=== PATIENT | female | born 1980 | race Caucasian/White ===

== ENCOUNTER → 2017-02-07 | Outpatient (CLI) | payer SELFPAY | END | disposition home or self-care (01) | LOC: LABWHC1 13:27 | PROVIDERS: ATTEND Obstetrics & Gynecology | DX: Z34.80 Encounter for supervision of other normal pregnancy, unspecified trimester (principal); Z3A.00 Weeks of gestation of pregnancy not specified | CPT/HCPCS: 36415; 84702 ==

== ENCOUNTER → 2017-02-12 | Outpatient (CLI) | payer SELFPAY ==
--- NOTE | 2017-02-12 13:51 | US ---
EXAMINATION TYPE: US OB <=14 wks transvag DATE OF EXAM: 02/12/2017 COMPARISON: US 01/28/2017 CLINICAL HISTORY: 36-year-old female Z36 F/U TO PREV ABN 01/28 r68.89 ABNORMAL CLINICAL. Bleeding on and off. Abnormal HCG EXAM PERFORMED: Transvaginal (TV) and Transabdominal (TA) FINDINGS: EXAM MEASUREMENTS: GESTATIONAL AGE / DATING Physician Established: Not yet established Dates by LMP: (9 weeks/4 days) EDC: 09/13/2017 Dates by First Scan: (7 weeks/1 days)- by gestational sac only, No pole identified EDC: 09/30/2017 Dates by Current Scan for: (5 weeks/1 days)- by gestational sac only, No pole identified (2 w eeks less growth than expected as compared to 01/28/2017) EDC: 10/14/2017 MATERNAL ANATOMY Uterus: 8.0 x 5.3 x 5.7 cm Right Ovary: 2.1 x 1.5 x 2.2 cm Left Ovary: 2.1 x 1.5 x 2.3 cm Post CDS / Adnexa: wnl Presence of free fluid: No Presence of corpus luteal cyst: Cystic area visualized left ovary measured 1.2 x 0.8 x 1.2 cm Presence of subchorionic bleed: Yes, measuring 0.9 x 0.9 x 0.6 cm GESTATION / SURVEY MSD: 0.59 cm (5 weeks/1 days) Yolk Sac (normal less than 6mm): No yolk sac visualized IUP: No yolk sac or pole seen Date of LMP: 12/07/2016 Beta HcG (if available): Not available at time of exam No pole or yolk sac identified on today's exam. Probable subchorionic bleed visualized measurin g 0.9 x 0.9 x 0.6 cm. Cystic area visualized left ovary measuring 1.2 x 0.8 x 1.2 cm. IMPRESSION: 1. Cystic collection along the fundal endometrium. If this represents a gestational sac, at this size , a yolk sac and pole should also be present. Also, there has been 2 weeks less growth than exp ected of this structure when compared with 01/28/2017. A small perigestational bleed is also seen. 2. Correlate with serial beta-hCG. Ultrasound follow-up as indicated. Findings suspicious for failed or blighted ovum. Pseudogestational sac of a nonvisualized ectopic is also a consideration.
== END | disposition home or self-care (01) ==
LOC: RADUSWWP 12:26
PROVIDERS: ATTEND Obstetrics & Gynecology
DX: Z36.89 Encounter for other specified antenatal screening (principal); O20.9 Hemorrhage in early pregnancy, unspecified; O26.891 Other specified pregnancy related conditions, first trimester; Z3A.01 Less than 8 weeks gestation of pregnancy
CPT/HCPCS: 76801; 76817

== ENCOUNTER → 2017-02-14 | Outpatient (CLI) | payer BC | END | disposition home or self-care (01) | LOC: LABWHC1 14:53 | PROVIDERS: ATTEND Obstetrics & Gynecology | DX: O03.9 Complete or unspecified spontaneous abortion without complication (principal) | CPT/HCPCS: 36415; 84702 ==

== ENCOUNTER → 2017-02-19 | Outpatient (CLI) | payer BC | END | disposition home or self-care (01) | LOC: LABWHC1 16:13 | PROVIDERS: ATTEND Obstetrics & Gynecology | DX: O03.9 Complete or unspecified spontaneous abortion without complication (principal); Z3A.00 Weeks of gestation of pregnancy not specified | CPT/HCPCS: 36415; 84702 ==

== ENCOUNTER → 2017-02-27 | Outpatient (CLI) | payer BC | END | disposition home or self-care (01) | LOC: LABWHC1 10:35 | PROVIDERS: ATTEND Obstetrics & Gynecology | DX: O03.9 Complete or unspecified spontaneous abortion without complication (principal) | CPT/HCPCS: 36415; 84702 ==

== ENCOUNTER → 2017-03-06 | Outpatient (CLI) | payer BC ==
[2017-03-06 12:41] LABS: HCT 37.8 % (34.0-46.0); HGB 12.4 gm/dL (11.4-16.0); MCH 32.3 pg (25.0-35.0); MCHC 32.9 g/dL (31.0-37.0); MCV 98.1 fL (80.0-100.0); Mean Platelet Volume 8.4; Platelet Count 185 k/uL (150-450); RBC 3.86 m/uL (3.80-5.40); RDW 13.4 % (11.5-15.5); WBC 5.8 k/uL (3.8-10.6)
== END | disposition home or self-care (01) ==
LOC: LABWHC1 11:17
PROVIDERS: ATTEND Obstetrics & Gynecology
DX: O03.9 Complete or unspecified spontaneous abortion without complication (principal); Z3A.00 Weeks of gestation of pregnancy not specified
CPT/HCPCS: 36415; 84702; 85027

== ENCOUNTER → 2017-05-21 | Outpatient (CLI) | payer BC ==
[2017-05-21 12:14] LABS: HCT 40.9 % (34.0-46.0); HGB 13.3 gm/dL (11.4-16.0); MCH 31.6 pg (25.0-35.0); MCHC 32.5 g/dL (31.0-37.0); MCV 97.2 fL (80.0-100.0); Mean Platelet Volume 7.7; Platelet Count 204 k/uL (150-450); RBC 4.21 m/uL (3.80-5.40); RDW 12.4 % (11.5-15.5); WBC 6.6 k/uL (3.8-10.6)
== END | disposition home or self-care (01) ==
LOC: LABWHC1 11:50
PROVIDERS: ATTEND Obstetrics & Gynecology
DX: O03.9 Complete or unspecified spontaneous abortion without complication (principal)
CPT/HCPCS: 36415; 84702; 85027

== ENCOUNTER 2017-09-17 00:19 | Emergency (ER) | payer BC ==
[2017-09-17 00:30] VITALS: BP 112/73; PULSE 75; RESP 18; TEMP 98.4
--- NOTE | 2017-09-17 01:06 | ED ---
General Adult HPI - General Chief complaint: Vaginal Bleeding Stated complaint: poss miscarriage Time Seen by Provider: 09/17/17 00:49 Source: patient, RN notes reviewed Mode of arrival: ambulatory Limitations: no limitations - History of Present Illness Initial comments: 37-year-old female presents to the emergency department for a chief complaint of vaginal bleeding 2 days. Patient states that she has been spotting since yesterday at work. Patient states she took a test yesterday and it was positive and she is probably 4 weeks along. 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 Patient last had a miscarriage in February. Patient denies any abdominal pain besides mild cramping. Patient denies any urinary symptoms. No fevers or chills at home.Patient has no other complaints at this time including shortness of breath, chest pain, abdominal pain, nausea or vomiting, headache, or visual changes. - Related Data Home Medications Medication Instructions Recorded Confirmed [id number] [id number] 2 tab PO ONCE PRN 01/28/17 01/28/17 [Excedrin] Previous Rx's Medication Instructions Recorded Pnv No.95/Ferrous Fum/Folic AC 1 each PO DAILY #30 tablet 01/28/17 [ Multivitamin Tablet] Allergies Allergy/AdvReac Type Severity Reaction Status Date / Time No Known Allergies Allergy Verified 09/17/17 00:30 Review of Systems ROS Statement: Those systems with pertinent positive or pertinent negative responses have been documented in the HPI. ROS Other: All systems not noted in ROS Statement are negative. Past Medical History Past Medical History: No Reported History Additional Past Medical History / Comment(s): anemia History of Any Multi-Drug Resistant Organisms: None Reported Past Surgical History: Cholecystectomy Past Psychological History: No Psychological Hx Reported Smoking Status: Current every day smoker Past Alcohol Use History: None Reported Past Drug Use History: None Reported General Exam Limitations: no limitations General appearance: alert, in no apparent distress Head exam: Present: atraumatic, normocephalic, normal inspection Eye exam: Present: normal appearance. Absent: scleral icterus, conjunctival injection ENT exam: Present: normal exam, mucous membranes moist Neck exam: Present: normal inspection, full ROM. Absent: tenderness, meningismus, lymphadenopathy Respiratory exam: Present: normal lung sounds bilaterally. Absent: respiratory distress, wheezes, rales, rhonchi, stridor Cardiovascular Exam: Present: regular rate, normal rhythm, normal heart sounds. Absent: systolic murmur, diastolic murmur, rubs, gallop, clicks GI/Abdominal exam: Present: soft, normal bowel sounds. Absent: distended, tenderness (no tenderness in the abdomen.), guarding, rebound, rigid Course Vital Signs 09/17/17 00:27 Temperature 98.4 F Pulse Rate 75 Respiratory 18 Rate Blood Pressure 112/73 O2 Sat by Pulse 100 Oximetry Medical Decision Making - Medical Decision Making 37-year-old female presents to the emergency department for a chief complaint of vaginal bleeding 2 days. Patient took a test yesterday. Patient has had a history of multiple miscarriages. Patient denies any dizziness shortness of breath chest pain. On exam patient is well appearing and pleasant. No findings on exam. Nontender abdomen. CBC within normal limits with a hemoglobin of 11.9. CMP unremarkable. O+ blood. No need for Rhogam. Patient refused pelvic exam at this time because she states in the past that has made bleeding worse. Patient also refuses ultrasound at this time stating she doesn't think it is necessary and would rather have blood work and repeat the hCG in 2 days. I discussed with patient that at this time without ultrasound we cannot rule out ectopic and patient will have to leave AMA if she refuses ultrasound. 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 Patient will be discharged AMA and is to follow-up with assembler truck trailer tomorrow. Aware to return to the emergency Department if she has any worsening symptoms or feels lightheaded, short of breath or has chest pain. - Lab Data Result diagrams: 09/17/17 01:40 09/17/17 01:40 Lab Results 09/17/17 09/17/17 09/17/17 Range/Units 01:40 01:40 01:40 WBC 7.1 (3.8-10.6) k/uL RBC 3.75 L (3.80-5.40) m/uL Hgb 11.9 (11.4-16.0) gm/dL Hct 35.6 (34.0-46.0) % MCV 94.8 (80.0-100.0) fL MCH 31.6 (25.0-35.0) pg MCHC 33.3 (31.0-37.0) g/dL RDW 12.4 (11.5-15.5) % Plt Count 185 (150-450) k/uL Neutrophils % 45 % Lymphocytes % 44 % Monocytes % 4 % Eosinophils % 4 % Basophils % 1 % Neutrophils # 3.2 (1.3-7.7) k/uL Lymphocytes # 3.1 (1.0-4.8) k/uL Monocytes # 0.3 (0-1.0) k/uL Eosinophils # 0.3 (0-0.7) k/uL Basophils # 0.1 (0-0.2) k/uL Sodium 138 (137-145) mmol/L Potassium 3.8 (3.5-5.1) mmol/L Chloride 110 H (98-107) mmol/L Carbon Dioxide 22 (22-30) mmol/L Anion Gap 6 mmol/L BUN 10 (7-17) mg/dL Creatinine 0.50 L (0.52-1.04) mg/dL Est GFR (CKD-EPI)AfAm >90 (>60 ml/min/1.73 sqM) Est GFR (CKD-EPI)NonAf >90 (>60 ml/min/1.73 sqM) Glucose 89 (74-99) mg/dL Calcium 8.9 (8.4-10.2) mg/dL Total Bilirubin 0.2 (0.2-1.3) mg/dL AST 16 (14-36) U/L ALT 21 (9-52) U/L Alkaline Phosphatase 83 (38-126) U/L Total Protein 6.3 (6.3-8.2) g/dL Albumin 4.0 (3.5-5.0) g/dL HCG, Quant 959.9 mIU/mL Urine Color Urine Appearance (Clear) Urine pH (5.0-8.0) Ur Specific [place] (1.001-1.035) Urine Protein (Negative) Urine Glucose (UA) (Negative) Urine Ketones (Negative) Urine Blood (Negative) Urine Nitrite (Negative) Urine Bilirubin (Negative) Urine Urobilinogen (<2.0) mg/dL Ur Leukocyte Esterase (Negative) Urine RBC (0-5) /hpf Urine WBC (0-5) /hpf Ur Squamous Epith Cells (0-4) /hpf Urine Bacteria (None) /hpf Urine Mucus (None) /hpf Urine HCG, Qual (Not Detectd) Blood Type O Positive Blood Type Recheck No 09/17/17 09/17/17 Range/Units 01:40 01:40 WBC (3.8-10.6) k/uL RBC (3.80-5.40) m/uL Hgb (11.4-16.0) gm/dL Hct (34.0-46.0) % MCV (80.0-100.0) fL MCH (25.0-35.0) pg MCHC (31.0-37.0) g/dL RDW (11.5-15.5) % Plt Count (150-450) k/uL Neutrophils % % Lymphocytes % % Monocytes % % Eosinophils % % Basophils % % Neutrophils # (1.3-7.7) k/uL Lymphocytes # (1.0-4.8) k/uL Monocytes # (0-1.0) k/uL Eosinophils # (0-0.7) k/uL Basophils # (0-0.2) k/uL Sodium (137-145) mmol/L Potassium (3.5-5.1) mmol/L Chloride (98-107) mmol/L Carbon Dioxide (22-30) mmol/L Anion Gap mmol/L BUN (7-17) mg/dL Creatinine (0.52-1.04) mg/dL Est GFR (CKD-EPI)AfAm (>60 ml/min/1.73 sqM) Est GFR (CKD-EPI)NonAf (>60 ml/min/1.73 sqM) Glucose (74-99) mg/dL Calcium (8.4-10.2) mg/dL Total Bilirubin (0.2-1.3) mg/dL AST (14-36) U/L ALT (9-52) U/L Alkaline Phosphatase (38-126) U/L Total Protein (6.3-8.2) g/dL Albumin (3.5-5.0) g/dL HCG, Quant mIU/mL Urine Color Light Yellow Urine Appearance Clear (Clear) Urine pH 6.5 (5.0-8.0) Ur Specific [place] 1.006 (1.001-1.035) Urine Protein Negative (Negative) Urine Glucose (UA) Negative (Negative) Urine Ketones Negative (Negative) Urine Blood Large H (Negative) Urine Nitrite Negative (Negative) Urine Bilirubin Negative (Negative) Urine Urobilinogen <2.0 (<2.0) mg/dL Ur Leukocyte Esterase Negative (Negative) Urine RBC <1 (0-5) /hpf Urine WBC 1 (0-5) /hpf Ur Squamous Epith Cells 9 H (0-4) /hpf Urine Bacteria Rare H (None) /hpf Urine Mucus Rare H (None) /hpf Urine HCG, Qual Detected (Not Detectd) Blood Type Blood Type Recheck Disposition Clinical Impression: Vaginal bleeding Disposition: Left Against Medical Advice Condition: Good Instructions: Threatened Miscarriage (ED) Additional Instructions: Please follow up with OB tomorrow morning. Repeat HCG in 1-2 days. Please return to the emergency department if you have any worsening symptoms. Is patient prescribed a controlled substance at d/c from ED?: No Referrals: Serenity Zavala MD [Primary Care Provider] - 1-2 days Eri Meyers MD [STAFF PHYSICIAN] - 1-2 days Time of Disposition: 02:56
[2017-09-17 01:57] LABS: Basophils # (A) 0.1 k/uL (0-0.2); Basophils % (A) 1 %; Eosinophils # (A) 0.3 k/uL (0-0.7); Eosinophils % (A) 4 %; HCT 35.6 % (34.0-46.0); HGB 11.9 gm/dL (11.4-16.0); Lymphocytes # (A) 3.1 k/uL (1.0-4.8); Lymphocytes % (A) 44 %; MCH 31.6 pg (25.0-35.0); MCHC 33.3 g/dL (31.0-37.0); MCV 94.8 fL (80.0-100.0); Monocytes # (A) 0.3 k/uL (0-1.0); Monocytes % (A) 4 %; Neutrophils # (A) 3.2 k/uL (1.3-7.7); Neutrophils % (A) 45 %; Platelet Count 185 k/uL (150-450); RBC 3.75 m/uL (3.80-5.40); RDW 12.4 % (11.5-15.5); WBC 7.1 k/uL (3.8-10.6)
[2017-09-17 02:08] LABS: ALT 21 U/L (9-52); AST 16 U/L (14-36); Alkaline Phosphatase 83 U/L (38-126); Anion Gap 6 mmol/L; Blood Urea Nitrogen 10 mg/dL (7-17); Calcium 8.9 mg/dL (8.4-10.2); Carbon Dioxide 22 mmol/L (22-30); Chloride 110 mmol/L (98-107); Glucose 89 mg/dL (74-99); Potassium 3.8 mmol/L (3.5-5.1); Sodium 138 mmol/L (137-145); Total Bilirubin 0.2 mg/dL (0.2-1.3); Total Protein 6.3 g/dL (6.3-8.2)
[2017-09-17 02:24] LABS: HCG,Quantitative Serum 959.9 mIU/mL
[2017-09-17 02:45] LABS: Appearance,Urine Clear (Clear); Bacteria,Urine Rare /hpf; Bilirubin,Urine Negative (Negative); Blood,Urine Large (Negative); Color,Urine Light Yellow; Glucose,Urine (UA) Negative (Negative); Ketones,Urine Negative (Negative); Leukocyte Esterase,Urine Negative (Negative); Mucus,Urine Rare /hpf; Nitrite,Urine Negative (Negative); PH, Urine 6.5 (5.0-8.0); Protein,Urine Negative (Negative); RBC,Urine <1 /hpf (0-5); Specific Gravity,Urine 1.006 (1.001-1.035); Squamous Epithelial Cell,Urine 9 /hpf (0-4); Urobilinogen,Urine <2.0 mg/dL (<2.0); WBC,Urine 1 /hpf (0-5)
== END 2017-09-17 03:05 | disposition left against medical advice (07) ==
LOC: EC 00:19
DX: O20.9 Hemorrhage in early pregnancy, unspecified (principal); O99.330 Smoking (tobacco) complicating pregnancy, unspecified trimester; F17.200 Nicotine dependence, unspecified, uncomplicated; Z67.40 Type O blood, Rh positive; Z3A.00 Weeks of gestation of pregnancy not specified
CPT/HCPCS: 36415; 80053; 81001; 81025; 84702; 85025; 86900; 86901; 99284

== ENCOUNTER → 2017-09-19 | Outpatient (CLI) | payer BC | END | disposition home or self-care (01) | LOC: LABWHC1 10:21 | PROVIDERS: ATTEND Obstetrics & Gynecology | DX: Z34.80 Encounter for supervision of other normal pregnancy, unspecified trimester (principal); Z3A.00 Weeks of gestation of pregnancy not specified | CPT/HCPCS: 36415; 84702 ==

== ENCOUNTER → 2017-10-17 | Outpatient (CLI) | payer BC | END | disposition home or self-care (01) | LOC: LABWHC1 07:38 | PROVIDERS: ATTEND Obstetrics & Gynecology | DX: Z53.9 Procedure and treatment not carried out, unspecified reason (principal) ==

== ENCOUNTER 2019-07-22 19:10 | Emergency (ER) | payer BC ==
[2019-07-22 19:14] VITALS: TEMP 98.4
[2019-07-22] MEDS ORDERED: KETOROLAC 30 MG/ML 1 ML VIAL IVP STA (19:37)
[2019-07-22] MEDS ORDERED: SODIUM CHLORIDE 0.9% 1,000 ML IV STA (19:37)
[2019-07-22] MEDS ORDERED: ONDANSETRON 4 MG/2 ML VIAL IVP STA (19:37)
--- NOTE | 2019-07-22 19:49 | ED ---
Abdominal Pain HPI - General Chief Complaint: Abdominal Pain Stated Complaint: side pain Time Seen by Provider: 07/22/19 19:16 Source: patient Mode of arrival: ambulatory Limitations: no limitations - History of Present Illness Initial Comments: Patient is a 39-year-old female presenting to the emergency Department with complaints of left sided flank pain 2 days. Patient states the pain has been waxing and waning but has been a very uncomfortable. She states she feels like it radiates from her left flank to her left side of her abdomen down to her groin. She denies any hematuria. She denies history of kidney stones. She does admit to mild nausea, no vomiting, no diarrhea. Admits to history cholecystectomy, no other abdominal surgeries. She denies fever, chills. She has no further complaints at this time. Upon arrival to the ER, her vitals are stable. - Related Data Home Medications Medication Instructions Recorded Confirmed [id number] 2 tab PO ONCE PRN 01/28/17 01/28/17 [Excedrin] Previous Rx's Medication Instructions Recorded Pnv No.95/Ferrous Fum/Folic AC 1 each PO DAILY #30 tablet 01/28/17 [ Multivitamin Tablet] Ketorolac [Toradol] 10 mg PO Q8HR #10 tab 07/22/19 Ondansetron Odt [Zofran Odt] 4 mg PO Q8HR PRN #10 tab 07/22/19 Tamsulosin [Flomax] 0.4 mg PO DAILY #7 cap 07/22/19 Allergies Allergy/AdvReac Type Severity Reaction Status Date / Time No Known Allergies Allergy Verified 07/22/19 19:14 Review of Systems ROS Statement: Those systems with pertinent positive or pertinent negative responses have been documented in the HPI. ROS Other: All systems not noted in ROS Statement are negative. Past Medical History Past Medical History: No Reported History Additional Past Medical History / Comment(s): anemia History of Any Multi-Drug Resistant Organisms: None Reported Past Surgical History: Cholecystectomy Past Psychological History: No Psychological Hx Reported Smoking Status: Current every day smoker Past Alcohol Use History: None Reported Past Drug Use History: Marijuana General Exam - General Exam Comments Initial Comments: GENERAL: Patient appears uncomfortable, sitting up and down, and in no acute distress. HEAD: Atraumatic, normocephalic. EYES: Pupils equal round and reactive to light, extraocular movements intact, sclera anicteric, conjunctiva are normal. ENT: TMs normal, nares patent, oropharynx clear without exudates. Moist mucous me mbranes. NECK: Normal range of motion, supple without lymphadenopathy or JVD. LUNGS: Breath sounds clear to auscultation bilaterally and equal. No wheezes rales or rhonchi. HEART: Regular rate and rhythm without murmurs, rubs or gallops. ABDOMEN: Pain with palpation in the left flank, left side of the abdomen. No lower quadrant tenderness. Soft,normoactive bowel sounds. No guarding, no rebound. No masses appreciated. : Deferred EXTREMITIES: Normal range of motion, no pitting or edema. No clubbing or cyanosis. NEUROLOGICAL: Cranial nerves II through XII grossly intact. Normal speech, normal gait. PSYCH: Normal mood, normal affect. SKIN: Warm, Dry, normal turgor, no rashes or lesions noted. Limitations: no limitations Course Vital Signs 07/22/19 07/22/19 19:11 21:21 Temperature 98.4 F Pulse Rate 89 74 Respiratory 18 16 Rate Blood Pressure 119/68 133/82 O2 Sat by Pulse 100 99 Oximetry Medical Decision Making - Medical Decision Making Patient is a 39-year-old female here for left-sided flank pain 2 days. Vital stable. Laboratory shows no acute findings. Urine has evidence of small little blood, no signs of infection, hCG is not detected. Computed tomography scan shows a left-sided renal stones, no acute hydronephrosis. Patient was given fluids, pain control. I discussed with patient is findings. I suggested that she most likely is suffering from renal colic and/or a recent passage of stone. Patient will be discharged home with pain medication, Zofran, Flomax. She will increase her fluid intake and follow up with her PCP or urology. Patient is agreement with this plan of care. Return parameters were discussed with the patient she verbalized understanding. Case discussed with Dr. Del Rosario. - Lab Data Result diagrams: 07/22/19 19:47 07/22/19 19:47 Lab Results 07/22/19 07/22/19 07/22/19 Range/Units 19:47 19:47 19:47 WBC 9.7 (3.8-10.6) k/uL RBC 4.24 (3.80-5.40) m/uL Hgb 13.5 (11.4-16.0) gm/dL Hct 41.4 (34.0-46.0) % MCV 97.5 (80.0-100.0) fL MCH 31.8 (25.0-35.0) pg MCHC 32.6 (31.0-37.0) g/dL RDW 12.5 (11.5-15.5) % Plt Count 195 (150-450) k/uL Neutrophils % 59 % Lymphocytes % 32 % Monocytes % 3 % Eosinophils % 4 % Basophils % 1 % Neutrophils # 5.7 (1.3-7.7) k/uL Lymphocytes # 3.1 (1.0-4.8) k/uL Monocytes # 0.3 (0-1.0) k/uL Eosinophils # 0.3 (0-0.7) k/uL Basophils # 0.0 (0-0.2) k/uL Sodium (137-145) mmol/L Potassium (3.5-5.1) mmol/L Chloride (98-107) mmol/L Carbon Dioxide (22-30) mmol/L Anion Gap mmol/L BUN (7-17) mg/dL Creatinine (0.52-1.04) mg/dL Est GFR (CKD-EPI)AfAm (>60 ml/min/1.73 sqM) Est GFR (CKD-EPI)NonAf (>60 ml/min/1.73 sqM) Glucose (74-99) mg/dL Calcium (8.4-10.2) mg/dL Total Bilirubin (0.2-1.3) mg/dL AST (14-36) U/L ALT (4-34) U/L Alkaline Phosphatase (38-126) U/L Total Protein (6.3-8.2) g/dL Albumin (3.5-5.0) g/dL Urine Color Yellow Urine Appearance Clear (Clear) Urine pH 6.0 (5.0-8.0) Ur Specific [place] 1.041 H (1.001-1.035) Urine Protein 1+ H (Negative) Urine Glucose (UA) Negative (Negative) Urine Ketones Trace H (Negative) Urine Blood Small H (Negative) Urine Nitrite Negative (Negative) Urine Bilirubin Negative (Negative) Urine Urobilinogen 6.0 (<2.0) mg/dL Ur Leukocyte Esterase Negative (Negative) Urine RBC 18 H (0-5) /hpf Urine WBC 1 (0-5) /hpf Ur Squamous Epith Cells 5 H (0-4) /hpf Hyaline Casts 1 (0-2) /lpf Urine Mucus Many H (None) /hpf Urine HCG, Qual Not Detected (Not Detectd) 07/22/19 Range/Units 19:47 WBC (3.8-10.6) k/uL RBC (3.80-5.40) m/uL Hgb (11.4-16.0) gm/dL Hct (34.0-46.0) % MCV (80.0-100.0) fL MCH (25.0-35.0) pg MCHC (31.0-37.0) g/dL RDW (11.5-15.5) % Plt Count (150-450) k/uL Neutrophils % % Lymphocytes % % Monocytes % % Eosinophils % % Basophils % % Neutrophils # (1.3-7.7) k/uL Lymphocytes # (1.0-4.8) k/uL Monocytes # (0-1.0) k/uL Eosinophils # (0-0.7) k/uL Basophils # (0-0.2) k/uL Sodium 136 L (137-145) mmol/L Potassium 3.9 (3.5-5.1) mmol/L Chloride 105 (98-107) mmol/L Carbon Dioxide 23 (22-30) mmol/L Anion Gap 8 mmol/L BUN 14 (7-17) mg/dL Creatinine 0.74 (0.52-1.04) mg/dL Est GFR (CKD-EPI)AfAm >90 (>60 ml/min/1.73 sqM) Est GFR (CKD-EPI)NonAf >90 (>60 ml/min/1.73 sqM) Glucose 116 H (74-99) mg/dL Calcium 9.0 (8.4-10.2) mg/dL Total Bilirubin 0.4 (0.2-1.3) mg/dL AST 24 (14-36) U/L ALT 14 (4-34) U/L Alkaline Phosphatase 94 (38-126) U/L Total Protein 7.4 (6.3-8.2) g/dL Albumin 4.6 (3.5-5.0) g/dL Urine Color Urine Appearance (Clear) Urine pH (5.0-8.0) Ur Specific [place] (1.001-1.035) Urine Protein (Negative) Urine Glucose (UA) (Negative) Urine Ketones (Negative) Urine Blood (Negative) Urine Nitrite (Negative) Urine Bilirubin (Negative) Urine Urobilinogen (<2.0) mg/dL Ur Leukocyte Esterase (Negative) Urine RBC (0-5) /hpf Urine WBC (0-5) /hpf Ur Squamous Epith Cells (0-4) /hpf Hyaline Casts (0-2) /lpf Urine Mucus (None) /hpf Urine HCG, Qual (Not Detectd) Disposition Clinical Impression: Left sided abdominal pain, Renal stone Disposition: HOME SELF-CARE Condition: Stable Instructions (If sedation given, give patient instructions): Kidney Stones (ED) Additional Instructions: Please return to the Emergency Department if symptoms worsen or any other concerns. Take medications as prescribed. Follow-up with PCP or urology as discussed. Prescriptions: Tamsulosin [Flomax] 0.4 mg PO DAILY #7 cap Ketorolac [Toradol] 10 mg PO Q8HR #10 tab Ondansetron Odt [Zofran Odt] 4 mg PO Q8HR PRN #10 tab PRN Reason: Nausea Is patient prescribed a controlled substance at d/c from ED?: No Referrals: None,Stated [Primary Care Provider] - 1-2 days
[2019-07-22 19:58] LABS: Basophils % (A) 1 %; Eosinophils # (A) 0.3 k/uL (0-0.7); Eosinophils % (A) 4 %; HCT 41.4 % (34.0-46.0); HGB 13.5 gm/dL (11.4-16.0); Lymphocytes # (A) 3.1 k/uL (1.0-4.8); Lymphocytes % (A) 32 %; MCH 31.8 pg (25.0-35.0); MCHC 32.6 g/dL (31.0-37.0); MCV 97.5 fL (80.0-100.0); Mean Platelet Volume 8.4; Monocytes # (A) 0.3 k/uL (0-1.0); Monocytes % (A) 3 %; Neutrophils # (A) 5.7 k/uL (1.3-7.7); Neutrophils % (A) 59 %; Platelet Count 195 k/uL (150-450); RBC 4.24 m/uL (3.80-5.40); RDW 12.5 % (11.5-15.5); WBC 9.7 k/uL (3.8-10.6)
[2019-07-22 20:03] LABS: Appearance,Urine Clear (Clear); Bilirubin,Urine Negative (Negative); Blood,Urine Small (Negative); Color,Urine Yellow; Glucose,Urine (UA) Negative (Negative); Hyaline Casts,Urine 1 /lpf (0-2); Ketones,Urine Trace (Negative); Leukocyte Esterase,Urine Negative (Negative); Mucus,Urine Many /hpf; Nitrite,Urine Negative (Negative); Protein,Urine 1+ (Negative); RBC,Urine 18 /hpf (0-5); Specific Gravity,Urine 1.041 (1.001-1.035); Squamous Epithelial Cell,Urine 5 /hpf (0-4); WBC,Urine 1 /hpf (0-5)
[2019-07-22 20:07] LABS: ALT 14 U/L (4-34); AST 24 U/L (14-36); African American GFR (CKD) >90 (>60 ml/min/1.73 sqM); Albumin 4.6 g/dL (3.5-5.0); Alkaline Phosphatase 94 U/L (38-126); Anion Gap 8 mmol/L; Blood Urea Nitrogen 14 mg/dL (7-17); Carbon Dioxide 23 mmol/L (22-30); Chloride 105 mmol/L (98-107); Glucose 116 mg/dL (74-99); Non-African American GFR(CKD) >90 (>60 ml/min/1.73 sqM); Potassium 3.9 mmol/L (3.5-5.1); Sodium 136 mmol/L (137-145); Total Bilirubin 0.4 mg/dL (0.2-1.3); Total Protein 7.4 g/dL (6.3-8.2)
--- NOTE | 2019-07-22 20:44 | CT ---
EXAMINATION TYPE: CT abdomen pelvis wo con DATE OF EXAM: 07/22/2019 HISTORY: Left sided abdominal pain and nausea. CT DLP: 379 mGycm. Automated Exposure Control for Dose Reduction was Utilized. TECHNIQUE: CT scan of the abdomen and pelvis is performed without oral or IV contrast. COMPARISON: NONE FINDINGS: Within the limitations of a non-contrast study, the following observations are made. LUNG BASES: Slightly elevated left hemidiaphragm. LIVER/GB: Cholecystectomy clips. Hepatomegaly. PANCREAS: No significant abnormality is seen. SPLEEN: No significant abnormality is seen. ADRENALS: No significant abnormality is seen. KIDNEYS: Single 2 to 3 mm nonobstructing calculus upper pole of the right kidney coronal image 51. No left-sided nephrolithiasis. No hydronephrosis or obstructing ureter calculi bilaterally. No intralum inal calculus in the poorly distended bladder BOWEL: Suboptimal evaluation of bowel without enteric contrast. No suspicious small or large bowel di latation. GENITAL ORGANS: Anteverted uterus. Tubular shaped gas structure consistent with tampon in the vaginal canal. Scattered left-sided pelvic phleboliths. LYMPH NODES: No greater than 1cm abdominal or pelvic lymph nodes are appreciated. OSSEOUS STRUCTURES: Bilateral pars defect L5 level with grade 1 anterolisthesis L5 on S1 along with m ild disc space narrowing and vacuum disc phenomenon. OTHER: No significant additional abnormality is seen. IMPRESSION: 1. Single 2 to 3 mm nonobstructing right renal calculus. No obstructing renal stones or hydronephrosi s is seen bilaterally. 2. Bilateral pars defects L5 level with spondylolisthesis and associated degenerative change lumbosac ral junction.
[2019-07-22] MEDS ORDERED: MORPHINE SULFATE 2 MG/ML SYRINGE IVP ONE (20:59)
[2019-07-22 21:24] VITALS: BP 133/82; PULSE 74; RESP 16
== END 2019-07-22 21:21 | disposition home or self-care (01) ==
LOC: EC 19:10
DX: N20.0 Calculus of kidney (principal); F17.200 Nicotine dependence, unspecified, uncomplicated; Z90.49 Acquired absence of other specified parts of digestive tract
CPT/HCPCS: 36415; 80053; 85025; 81001; 81025; 74176; 99284; 96374; 96375; 96361; J2405; J1885

== ENCOUNTER → 2019-08-11 | Outpatient (CLI) | payer BC ==
--- NOTE | 2019-08-12 04:11 | CT ---
EXAMINATION TYPE: CT abdomen pelvis wo con DATE OF EXAM: 08/11/2019 COMPARISON: 07/22/2019 HISTORY: 39-year-old female Left sided pain with history of stones. CT DLP: 562 mGycm. Automated exposure control for dose reduction was used. TECHNIQUE: Contiguous axial scanning of the abdomen and pelvis without IV contrast. Coronal and sagit chichi reconstructions performed. FINDINGS: LUNG BASES: No significant abnormality is appreciated. LIVER/GB: Liver measures mildly enlarged at 18.5 cm. Gallbladder surgically absent with cholecystecto my clips. Noncontrast appearance of the adrenal glands, spleen, and pancreas show no gross abnormality. Punctate nonobstructive 3 mm calculus within each kidney. No hydronephrosis. No dilated small bowel, free fluid, or free air. No mesenteric or retroperitoneal lymphadenopathy see n. Normal appendix. Mild stool in the right-sided colon and upper rectum. The pericolonic inflammatory c hange. Left-sided pelvic phleboliths are noted, unchanged from prior. Bladder is under distended. Uterus is anteverted. 1.9 cm dominant follicle or functional cyst within the left ovary. Right ovary not clearl y delineated from adjacent bowel loops. No abnormal fluid collection in the pelvis or obvious pelvic lymphadenopathy allowing for noncontrast technique. Bones: Degenerative disc disease at L5-S1 with redemonstrated bilateral L5 pars defects and grade 1 a nterolisthesis at L5-S1. IMPRESSION: 1. A punctate 3 mm nonobstructive calculus in each kidney. No hydronephrosis. 2. Redemonstrated degenerative disc disease at L5-S1 with bilateral L5 pars defects and grade 1 anter olisthesis at L5-S1.
== END | disposition home or self-care (01) ==
LOC: RADCTMAIN 16:06
PROVIDERS: ATTEND Family Medicine
DX: R10.9 Unspecified abdominal pain (principal)
CPT/HCPCS: 74176

== ENCOUNTER 2021-05-15 11:34 | Emergency (ER) | payer BC ==
[2021-05-15 11:53] VITALS: BP 120/66; PULSE 75; RESP 18; TEMP 99.9
--- NOTE | 2021-05-15 12:20 | ED ---
URI HPI - General Chief Complaint: Upper Respiratory Infection Stated Complaint: Chest pain Time Seen by Provider: 05/15/21 11:51 Source: patient, EMS, RN notes reviewed Mode of arrival: EMS Limitations: no limitations - History of Present Illness Initial Comments: This is a 40-year-old female who presents to the emergency department for 2 days of coughing, congestion, fatigue, chest pain, and sore throat. She presents from [facility] urgent [facility]. She had influenza and Covid testing there. Her influenza testing was negative, however her Covid was a send out test and the results were not available to her. She did have an EKG done at their facility, this EKG was sent over and is available for my review. EKG reveals normal sinus rhythm without any identified acute irregularities. Denies any measured fevers/chills, however she has felt warm. Denies any sick contacts. She has not received her COVID vaccine. Denies any shortness of breath. MD Complaint: cough, sore throat, rhinorrhea, nasal congestion, sinus pain Onset/Timin -: days(s) Consistency: constant Treatments Prior to Arrival: none - Related Data Home Medications Medication Instructions Recorded Confirmed No Known Home Medications 05/15/21 05/15/21 Allergies Allergy/AdvReac Type Severity Reaction Status Date / Time No Known Allergies Allergy Verified 05/15/21 13:58 Review of Systems ROS Statement: Those systems with pertinent positive or pertinent negative responses have been documented in the HPI. ROS Other: All systems not noted in ROS Statement are negative. Constitutional: Denies: fever, chills ENT: Reports: throat pain. Denies: ear pain Respiratory: Reports: cough. Denies: dyspnea Cardiovascular: Reports: chest pain. Denies: palpitations Gastrointestinal: Denies: abdominal pain, nausea, vomiting, diarrhea Genitourinary: Denies: urgency, dysuria Skin: Denies: rash Neurological: Denies: headache Past Medical History Past Medical History: No Reported History Additional Past Medical History / Comment(s): anemia History of Any Multi-Drug Resistant Organisms: None Reported Past Surgical History: Cholecystectomy Past Psychological History: No Psychological Hx Reported Smoking Status: Former smoker Past Alcohol Use History: None Reported Past Drug Use History: Marijuana General Exam Limitations: no limitations General appearance: alert, in no apparent distress Head exam: Present: atraumatic, normocephalic, normal inspection ENT exam: Present: mucous membranes moist, TM's normal bilaterally, normal external ear exam Expanded Throat exam: other (Pharyngeal erythema) Neck exam: Present: normal inspection. Absent: tenderness, meningismus, lymphadenopathy Respiratory exam: Present: normal lung sounds bilaterally. Absent: respiratory distress, wheezes, rales, rhonchi, stridor Cardiovascular Exam: Present: regular rate, normal rhythm, normal heart sounds. Absent: systolic murmur, diastolic murmur, rubs, gallop, clicks Neurological exam: Present: alert, oriented X3, CN II-XII intact Psychiatric exam: Present: normal affect, normal mood Skin exam: Present: warm, dry, intact, normal color. Absent: rash Course Vital Signs 05/15/21 05/15/21 11:43 11:50 Temperature 99.9 F H Pulse Rate 75 Respiratory 16 18 Rate Blood Pressure 120/66 O2 Sat by Pulse 97 Oximetry Medical Decision Making - Medical Decision Making This is a 40-year-old female who presents the emergency department for upper respiratory symptoms. Will obtain a rapid Covid tested our facility, since her Covid test at urgent care will take 1-2 days to return. Influenza testing was negative at that facility, will not repeat testing here. EKG at that facility revealed sinus rhythm and no other findings. Chest x-ray obtained, which revealed stranding bibasilar atelectasis. Covid testing positive. Given that the patient is , a daily smoker, and unvaccinated, she does qualify for monoclonal antibody treatment. Patient given a packet of information regarding the monoclonal antibody treatment, and this was reviewed with her. Patient desires to proceed with treatment. Monoclonal antibody treatment administered, patient tolerated this well. She is not hypoxic and is stable for discharge home. She is advised to quarantine for 5 days, remain well hydrated, and continue with symptomatic management. Return precautions reviewed in depth, the patient is instructed to return to the emergency department with any new, worsening, or concerning symptoms. Patient verbalized understanding. This case was discussed in detail with the attending ED physician. Presentation, findings, and treatment plan discussed in detail as well. - Lab Data Lab Results 05/15/21 Range/Units 12:05 Coronavirus (PCR) Detected A (Not Detectd) 05/15/21 12:19 Normal sinus rhythm. Ventricular rate of 79 bpm, ND interval 140 ms, QRS of 104 ms, QTC of 445 ms. - Radiology Data Radiology results: report reviewed, image reviewed Disposition Clinical Impression: COVID-19 Disposition: HOME SELF-CARE Instructions (If sedation given, give patient instructions): Coronavirus Disease 2019 (COVID-19), COVID-19 (Coronavirus Disease 2019) (ED), How to Recover from COVID-19 at Home (ED) Additional Instructions: Return to the emergency department if you develop any new, worsening, or concerning symptoms. You will need to quarantine for 5 days. Follow up with your primary care provider after this quarantine period. Continue with symptomatic management such as hydration and OTC cold medication. Is patient prescribed a controlled substance at d/c from ED?: No Referrals: Miller Monroy MD [Primary Care Provider] - 1-2 days
--- NOTE | 2021-05-15 12:33 | XR ---
EXAMINATION TYPE: XR chest 2V DATE OF EXAM: 05/15/2021 COMPARISON: 04/14/2010 HISTORY: 40 year-old female chest pain and body aches TECHNIQUE: PA and lateral views FINDINGS: Heart normal size. Aorta and pulmonary vasculature within normal limits. Hazy lower lung densities re lated to overlying soft tissue. No daksha consolidation or pleural effusion seen. Some strandy atelect asis in the lower lungs. IMPRESSION: Some strandy bibasilar atelectasis. Hazy lower lung densities relating to overlying soft tissue. No d efinite acute process.
[2021-05-15] MEDS ORDERED: SODIUM CHLORIDE 0.9% 50 ML IVPB ONE (13:45)
[2021-05-15] MEDS ORDERED: SOTROVIMAB (EUA) 500 MG in SODIUM CHLORIDE 0.9% 100 ML IVPB ONE (14:00)
== END 2021-05-15 15:47 | disposition home or self-care (01) ==
LOC: EC 11:34
DX: U07.1 COVID-19 (principal); F12.90 Cannabis use, unspecified, uncomplicated; Z87.891 Personal history of nicotine dependence
CPT/HCPCS: 87635; 71046; 99285; Q0247

== ENCOUNTER 2022-07-23 14:15 | Emergency (ER) | payer BC ==
[2022-07-23 14:35] VITALS: BP 96/63; PULSE 69; RESP 18; TEMP 97.8
[2022-07-23] MEDS ORDERED: KETOROLAC 15 MG/ML 1 ML VIAL IVP STA (15:30)
--- NOTE | 2022-07-23 15:36 | ED ---
General Adult HPI - General Chief complaint: Chest Pain Stated complaint: chest hurts Time Seen by Provider: 07/23/22 15:15 Source: patient, RN notes reviewed Mode of arrival: ambulatory Limitations: no limitations - History of Present Illness Initial comments: Patient is a pleasant 42-year-old female presenting to the emergency department with concerns of chest discomfort. Onset of symptoms was around a year ago when she had coded. Symptoms have been continuous since that time however somewhat worse the past couple of weeks. Discomfort is somewhat sharp. Discomfort is in the sternal region. Discomfort does increase with arm movements as well as deep breaths or cough. No associated dyspnea, nausea, or diaphoresis. No leg pain or leg swelling. No significant cough. Patient does however notice when she does cough that it does bother her more. Symptoms currently are mild - Related Data Previous Rx's Medication Instructions Recorded Ketorolac [Toradol] 10 mg PO Q6HR PRN #15 tab 07/23/22 Allergies Allergy/AdvReac Type Severity Reaction Status Date / Time No Known Allergies Allergy Verified 07/23/22 17:31 Review of Systems ROS Statement: Those systems with pertinent positive or pertinent negative responses have been documented in the HPI. ROS Other: All systems not noted in ROS Statement are negative. Constitutional: Denies: fever Eyes: Denies: eye pain ENT: Denies: ear pain Respiratory: Reports: as per HPI. Denies: cough, dyspnea Cardiovascular: Reports: as per HPI, chest pain Endocrine: Denies: fatigue Gastrointestinal: Denies: abdominal pain Genitourinary: Denies: urgency Musculoskeletal: Denies: back pain Skin: Denies: rash Neurological: Denies: weakness Past Medical History Past Medical History: No Reported History Additional Past Medical History / Comment(s): anemia History of Any Multi-Drug Resistant Organisms: None Reported Past Surgical History: Cholecystectomy Past Psychological History: No Psychological Hx Reported Smoking Status: Current every day smoker Past Alcohol Use History: None Reported Past Drug Use History: Marijuana General Exam Limitations: no limitations General appearance: alert, in no apparent distress Head exam: Present: normocephalic Eye exam: Present: normal appearance Neck exam: Present: normal inspection Respiratory exam: Present: normal lung sounds bilaterally, chest wall tenderness (Sternal region) Cardiovascular Exam: Present: regular rate, normal rhythm Expanded Peripheral pulses: 2+: Radial (R), Radial (L), Posterior Tibialis (R), Posterior Tibialis (L), Dorsalis Pedis (R), Dorsalis Pedis (L) GI/Abdominal exam: Present: soft. Absent: tenderness Extremities exam: Present: normal inspection. Absent: pedal edema, calf tenderness Neurological exam: Present: alert Psychiatric exam: Present: normal affect, normal mood Skin exam: Present: normal color Course Vital Signs 07/23/22 14:32 Temperature 97.8 F Pulse Rate 69 Respiratory 18 Rate Blood Pressure 96/63 O2 Sat by Pulse 98 Oximetry EKG Findings - EKG Results: EKG: interpreted by ERMD (Q waves V1 and V2), sinus rhythm, normal axis, normal ST/T Medical Decision Making - Medical Decision Making Was pt. sent in by a medical professional or institution ([facility], [employer] FIRST [employer]PONDER, urgent care, hospital, or jail...) When possible be specific @ -No Did you speak to anyone other than the patient for history (EMS, parent, family, police, friend...)? What history was obtained from this source @ -No Did you review nursing and triage notes (agree or disagree)? Why? @ -I reviewed and agree with nursing and triage notes Were old charts reviewed (outside hosp., previous admission, EMS record, old EKG, old radiological studies, urgent care reports/EKG's, jail records)? Report findings @ -No old charts were reviewed Differential Diagnosis (chest pain, altered mental status, abdominal pain women, abdominal pain men, vaginal bleeding, weakness, fever, dyspnea, syncope, headache, dizziness, GI bleed, back pain, seizure, CVA, palpatations, mental health)? @ -Differential Chest Pain: Stable Angina, Unstable Angina, STEMI, NSTEMI Aortic Dissection, Pneumothorax, Musculoskeletal, Esophageal Spasm GERD, Cholecystitis, Pancreatitis, Zoster, thi s is not meant to be an all-inclusive list. EKG interpreted by me (3pts min.). @ -As above X-rays interpreted by me (1pt min.). @ -Chest x-ray shows no acute process CT interpreted by me (1pt min.). @ -None done U/S interpreted by me (1pt. min.). @ -None done What testing was considered but not performed or refused? (CT, X-rays, U/S, labs)? Why? @ -None What meds were considered but not given or refused? Why? @ -None Did you discuss the management of the patient with other professionals (professionals i.e. , PA, WHEELCHA[employer]PER[employer] FIRST RESPONDER, lab, RT, psych nurse, social media editor, chairman of the board, teacher, chief customer officer, case management manager)? Give summary @ -No Was smoking cessation discussed for >3mins.? @ -No Was critical care preformed (if so, how long)? @ -No Were there social determinants of health that impacted care today? How? (Homelessness, low income, unemployed, alcoholism, drug addiction, transportation, low edu. Level, literacy, decrease access to med. care, senior living, rehab)? @ -No Was there de-escalation of care discussed even if they declined (Discuss DNR or withdrawal of care, Hospice)? DNR status @ -No What co-morbidities impacted this encounter? (DM, HTN, Smoking, COPD, CAD, Cancer, CVA, ARF, Chemo, Hep., AIDS, mental health diagnosis, sleep apnea, morb id obesity)? @ -None Was patient admitted / discharged? Hospital course, mention meds given and route, prescriptions, significant lab abnormalities, going to OR and other pertinent info. @ -Patient reevaluated and improved with Toradol. Patient has had symptoms for a year just somewhat worse. Patient will be discharged with follow-up with primary care physician. Patient reevaluated and updated Undiagnosed new problem with uncertain prognosis? @ -No Drug Therapy requiring intensive monitoring for toxicity (Heparin, Nitro, Insulin, Cardizem)? @ -No Were any procedures done? @ -No Diagnosis/symptom? @ -Chest pain Acute, or Chronic, or Acute on Chronic? @ -Acute on chronic Uncomplicated (without systemic symptoms) or Complicated (systemic symptoms)? @ -default Side effects of treatment? @ -No Exacerbation, Progression, or Severe Exacerbation? @ -No Poses a threat to life or bodily function? How? (Chest pain, [place], [place], pneumonia, PE, COPD, DKA, ARF, appy, cholecystitis, CVA, Diverticulitis, Homicidal, Suici rupesh, threat to staff... and all critical care pts) @ -No - Lab Data Result diagrams: 07/23/22 16:00 07/23/22 16:00 Lab Results 07/23/22 07/23/22 07/23/22 Range/Units 16:00 16:00 16:00 WBC 5.5 (3.8-10.6) k/uL RBC 3.93 (3.80-5.40) m/uL Hgb 12.9 (11.4-16.0) gm/dL Hct 39.2 (34.0-46.0) % MCV 99.7 (80.0-100.0) fL MCH 32.8 (25.0-35.0) pg MCHC 32.9 (31.0-37.0) g/dL RDW 12.6 (11.5-15.5) % Plt Count 157 (150-450) k/uL MPV 8.7 Neutrophils % 41 % Lymphocytes % 47 % Monocytes % 4 % Eosinophils % 5 % Basophils % 1 % Neutrophils # 2.3 (1.3-7.7) k/uL Lymphocytes # 2.6 (1.0-4.8) k/uL Monocytes # 0.2 (0-1.0) k/uL Eosinophils # 0.3 (0-0.7) k/uL Basophils # 0.0 (0-0.2) k/uL PT 10.1 (9.0-12.0) sec INR 1.0 (<1.2) APTT 26.0 (22.0-30.0) sec D-Dimer <0.17 (<0.60) mg/L FEU Sodium 138 (137-145) mmol/L Potassium 3.9 (3.5-5.1) mmol/L Chloride 106 (98-107) mmol/L Carbon Dioxide 26 (22-30) mmol/L Anion Gap 6 mmol/L BUN 8 (7-17) mg/dL Creatinine 0.69 (0.52-1.04) mg/dL Est GFR (CKD-EPI)AfAm >90 (>60 ml/min/1.73 sqM) Est GFR (CKD-EPI)NonAf >90 (>60 ml/min/1.73 sqM) Glucose 83 (74-99) mg/dL Calcium 8.3 L (8.4-10.2) mg/dL Magnesium 1.9 (1.6-2.3) mg/dL Total Bilirubin 0.3 (0.2-1.3) mg/dL AST 20 (14-36) U/L ALT 16 (4-34) U/L Alkaline Phosphatase 115 (38-126) U/L Troponin I (0.000-0.034) ng/mL Total Protein 6.4 (6.3-8.2) g/dL Albumin 4.1 (3.5-5.0) g/dL Amylase 47 (30-110) U/L Lipase 83 (23-300) U/L 07/23/22 Range/Units 16:00 WBC (3.8-10.6) k/uL RBC (3.80-5.40) m/uL Hgb (11.4-16.0) gm/dL Hct (34.0-46.0) % MCV (80.0-100.0) fL MCH (25.0-35.0) pg MCHC (31.0-37.0) g/dL RDW (11.5-15.5) % Plt Count (150-450) k/uL MPV Neutrophils % % Lymphocytes % % Monocytes % % Eosinophils % % Basophils % % Neutrophils # (1.3-7.7) k/uL Lymphocytes # (1.0-4.8) k/uL Monocytes # (0-1.0) k/uL Eosinophils # (0-0.7) k/uL Basophils # (0-0.2) k/uL PT (9.0-12.0) sec INR (<1.2) APTT (22.0-30.0) sec D-Dimer (<0.60) mg/L FEU Sodium (137-145) mmol/L Potassium (3.5-5.1) mmol/L Chloride (98-107) mmol/L Carbon Dioxide (22-30) mmol/L Anion Gap mmol/L BUN (7-17) mg/dL Creatinine (0.52-1.04) mg/dL Est GFR (CKD-EPI)AfAm (>60 ml/min/1.73 sqM) Est GFR (CKD-EPI)NonAf (>60 ml/min/1.73 sqM) Glucose (74-99) mg/dL Calcium (8.4-10.2) mg/dL Magnesium (1.6-2.3) mg/dL Total Bilirubin (0.2-1.3) mg/dL AST (14-36) U/L ALT (4-34) U/L Alkaline Phosphatase (38-126) U/L Troponin I <0.012 (0.000-0.034) ng/mL Total Protein (6.3-8.2) g/dL Albumin (3.5-5.0) g/dL Amylase (30-110) U/L Lipase (23-300) U/L Disposition Clinical Impression: Chest pain Disposition: HOME SELF-CARE Condition: Stable Instructions (If sedation given, give patient instructions): Chest Pain (ED) Additional Instructions: Please do follow-up to primary care physician in the next couple days for recheck. Prescription has been sent to pharmacy. Return for increased pain, difficulty breathing, fevers, worsening or changing symptoms or any other concerns. Prescriptions: Ketorolac [Toradol] 10 mg PO Q6HR PRN #15 tab PRN Reason: Pain Is patient prescribed a controlled substance at d/c from ED?: No Referrals: Miller Monroy MD [Primary Care Provider] - 1-2 days Time of Disposition: 18:05
[2022-07-23 16:16] LABS: Basophils % (A) 1 %; Eosinophils # (A) 0.3 k/uL (0-0.7); Eosinophils % (A) 5 %; HCT 39.2 % (34.0-46.0); HGB 12.9 gm/dL (11.4-16.0); Lymphocytes # (A) 2.6 k/uL (1.0-4.8); Lymphocytes % (A) 47 %; MCH 32.8 pg (25.0-35.0); MCHC 32.9 g/dL (31.0-37.0); MCV 99.7 fL (80.0-100.0); Mean Platelet Volume 8.7; Monocytes # (A) 0.2 k/uL (0-1.0); Monocytes % (A) 4 %; Neutrophils # (A) 2.3 k/uL (1.3-7.7); Neutrophils % (A) 41 %; Platelet Count 157 k/uL (150-450); RBC 3.93 m/uL (3.80-5.40); RDW 12.6 % (11.5-15.5); WBC 5.5 k/uL (3.8-10.6)
--- NOTE | 2022-07-23 16:31 | XR ---
EXAMINATION TYPE: XR chest 2V DATE OF EXAM: 07/23/2022 COMPARISON: Chest x-ray May 15, 2021 HISTORY: Chest pain. TECHNIQUE: Frontal and lateral views of the chest are obtained. FINDINGS: There is no suspicious focal air space opacity, pleural effusion, or pneumothorax seen. T he cardiac silhouette size is stable and within normal limits. The osseous structures are intact. C holecystectomy clips are redemonstrated. IMPRESSION: No acute process. No significant change from prior.
[2022-07-23 16:32] LABS: ALT 16 U/L (4-34); AST 20 U/L (14-36); African American GFR (CKD) >90 (>60 ml/min/1.73 sqM); Albumin 4.1 g/dL (3.5-5.0); Alkaline Phosphatase 115 U/L (38-126); Amylase 47 U/L (30-110); Anion Gap 6 mmol/L; Blood Urea Nitrogen 8 mg/dL (7-17); Calcium 8.3 mg/dL (8.4-10.2); Carbon Dioxide 26 mmol/L (22-30); Chloride 106 mmol/L (98-107); Glucose 83 mg/dL (74-99); Lipase 83 U/L (23-300); Magnesium 1.9 mg/dL (1.6-2.3); Non-African American GFR(CKD) >90 (>60 ml/min/1.73 sqM); Potassium 3.9 mmol/L (3.5-5.1); Sodium 138 mmol/L (137-145); Total Bilirubin 0.3 mg/dL (0.2-1.3); Total Protein 6.4 g/dL (6.3-8.2)
[2022-07-23 17:05] LABS: Prothrombin Time 10.1 sec (9.0-12.0)
== END 2022-07-23 18:25 | disposition home or self-care (01) ==
LOC: EC 14:15
DX: R07.89 Other chest pain (principal); F12.90 Cannabis use, unspecified, uncomplicated; F17.200 Nicotine dependence, unspecified, uncomplicated
CPT/HCPCS: 36415; 93005; 85379; 80053; 82150; 83690; 83735; 84484; 85025; 85610; 85730; 71046; 99285; 96374; J1885

== ENCOUNTER 2023-10-29 19:05 | Emergency (ER) | payer BC, OTHER ==
--- NOTE | 2023-10-29 19:52 | ED ---
Extremity Problem HPI - General Chief complaint: Extremity Problem,Nontraumatic Stated complaint: L shoulder and back pain Time Seen by Provider: 10/29/23 19:49 Source: patient, RN notes reviewed Mode of arrival: ambulatory Limitations: no limitations - History of Present Illness Initial comments: 43-year-old female presenting with left shoulder pain x 1 week. States she is having a "shooting pain" from her left shoulder down her left arm, radiating to her back and neck. States she does have an active job but denies any specific trauma or injury. Pain is worse with movement and at night. She has never had this pain before. She is a current smoker. Denies any chest pain or shortness of breath. Denies any history of cardiac or pulmonary issues. States ibuprofen mildly relieves symptoms. - Related Data Previous Rx's Medication Instructions Recorded Ketorolac [Toradol] 10 mg PO Q6HR PRN #15 tab 07/23/22 Naproxen [Naprosyn] 500 mg PO BID PRN #30 tablet 10/29/23 methocarbamoL [Robaxin] 500 mg PO TID PRN #15 tab 10/29/23 Allergies Allergy/AdvReac Type Severity Reaction Status Date / Time No Known Allergies Allergy Verified 07/23/22 17:31 Review of Systems ROS Statement: Those systems with pertinent positive or pertinent negative responses have been documented in the HPI. ROS Other: All systems not noted in ROS Statement are negative. Past Medical History Past Medical History: No Reported History Additional Past Medical History / Comment(s): anemia History of Any Multi-Drug Resistant Organisms: None Reported Past Surgical History: Cholecystectomy Past Psychological History: No Psychological Hx Reported Smoking Status: Current every day smoker Past Alcohol Use History: None Reported Past Drug Use History: Marijuana General Exam Limitations: no limitations General appearance: alert, in no apparent distress Head exam: Present: atraumatic, normocephalic, normal inspection ENT exam: Present: normal exam, mucous membranes moist Neck exam: Present: normal inspection. Absent: tenderness, meningismus, lymphadenopathy Respiratory exam: Present: normal lung sounds bilaterally. Absent: respiratory distress, wheezes, rales, rhonchi, stridor Cardiovascular Exam: Present: regular rate, normal rhythm, normal heart sounds. Absent: systolic murmur, diastolic murmur, rubs, gallop, clicks Left Shoulder Exam: Present: normal inspection, full ROM, tenderness (Mild tenderness over posterior aspect of left shoulder), other (Positive Neer's and empty can test). Absent: swelling Upper Arm exam: Present: normal inspection, full ROM. Absent: tenderness, swelling Elbow exam: Present: normal inspection, full ROM. Absent: tenderness, swelling Forearm Wrist exam: Present: normal inspection, full ROM. Absent: tenderness, swelling Hand Wrist exam: Present: normal inspection, full ROM. Absent: tenderness, swelling Vascular: Present: normal capillary refill, radial pulse. Absent: vascular compromise Back exam: Present: normal inspection, full ROM Neurological exam: Present: alert, oriented X3 Psychiatric exam: Present: normal affect, normal mood Skin exam: Present: warm, dry, intact, normal color. Absent: rash Course Vital Signs 10/29/23 10/29/23 19:13 22:09 Temperature 98 F 98.1 F Pulse Rate 70 68 Respiratory 16 18 Rate Blood Pressure 118/74 122/67 O2 Sat by Pulse 98 99 Oximetry Medical Decision Making - Medical Decision Making Was pt. sent in by a medical professional or institution (, PA, [employer], urgent care, hospital, or alf...) When possible be specific @ -No Did you speak to anyone other than the patient for history (EMS, parent, family, police, friend...)? What history was obtained from this source @ -No Did you review nursing and triage notes (agree or disagree)? Why? @ -I reviewed and agree with nursing and triage notes Were old charts reviewed (outside hosp., previous admission, EMS record, old EKG, old radiological studies, urgent care reports/EKG's, alf records)? Report findings @ -No old charts were reviewed Differential Diagnosis (chest pain, altered mental status, abdominal pain women, abdominal pain men, vaginal bleeding, weakness, fever, dyspnea, syncope, headache, dizziness, GI bleed, back pain, seizure, CVA, palpatations, mental health, musculoskeletal)? @ -Differential Musculoskeletal Muscular strain, contusion, ligament sprain, fracture, arthritis, septic arthritis, bursitis, cellulitis, muscle spasm, nerve compression, DVT, arterial occlusion, herpes zoster, electrolyte abnormality, tumor.... This is not meant to be in all inclusive list EKG interpreted by me (3pts min.). @ -As above X-rays interpreted by me (1pt min.). @ -Chest x-ray reveals no acute process, left shoulder x-ray reveals no acute process CT interpreted by me (1pt min.). @ -None done U/S interpreted by me (1pt. min.). @ -None done What testing was considered but not performed or refused? (CT, X-rays, U/S, labs)? Why? @ -None What meds were considered but not given or refused? Why? @ -None Did you discuss the management of the patient with other professionals (professionals i.e. , PA, [employer], lab, RT, psych nurse, social work instructor, bolt sawyer, teacher, court registry officer, immigration case manager)? Give summary @ -No Was smoking cessation discussed for >3mins.? @ -No Was critical care preformed (if so, how long)? @ -No Were there social determinants of health that impacted care today? How? (Homelessness, low income, unemployed, alcoholism, drug addiction, t ransportation, low edu. Level, literacy, decrease access to med. care, residential, rehab)? @ -No Was there de-escalation of care discussed even if they declined (Discuss DNR or withdrawal of care, Hospice)? DNR status @ -No What co-morbidities impacted this encounter? (DM, HTN, Smoking, COPD, CAD, Cancer, CVA, ARF, Chemo, Hep., AIDS, mental health diagnosis, sleep apnea, morbid obesity)? @ -None Was patient admitted / discharged? Hospital course, mention meds given and route, prescriptions, significant lab abnormalities, going to OR and other pertinent info. @ -Patient was discharged. This is a 43-year-old female presenting with left shoulder pain x 1 week. Denies trauma or injury. She is a current smoker. Positive Neer's and empty can test. Patient was provided with Toradol and Flexeril. Cardiac workup obtained to rule out ACS, including EKG, chest x-ray, lab work including CBC, CMP, troponin, all of which were unremarkable. X-ray of left shoulder was unremarkable. Upon reevaluation, patient states symptoms have improved. Discussed findings with patient. Symptoms are likely due to left shoulder strain. Advised follow-up with orthopedics. Return precautions discussed and patient is agreeable to plan. Case was discussed with my ED attending Dr. Steele. Patient discharged in stable condition. Undiagnosed new problem with uncertain prognosis? @ -No Drug Therapy requiring intensive monitoring for toxicity (Heparin, Nitro, Insulin, Cardizem)? @ -No Were any procedures done? @ -No Diagnosis/symptom? @ -Left shoulder strain Acute, or Chronic, or Acute on Chronic? @ -Acute Uncomplicated (without systemic symptoms) or Complicated (systemic symptoms)? @ -Uncomplicated Side effects of treatment? @ -No Exacerbation, Progression, or Severe Exacerbation? @ -No Poses a threat to life or bodily function? How? (Chest pain, [place], [place], pneumonia, PE, COPD, DKA, ARF, appy, cholecystitis, CVA, Diverticulitis, Homicidal, Suicidal, threat to staff... and all critical care pts) @ -No - Lab Data Result diagrams: 10/29/23 20:11 10/29/23 20:11 Lab Results 10/29/23 10/29/23 10/29/23 Range/Units 20:11 20:11 20:11 WBC 7.0 (3.8-10.6) k/uL RBC 4.20 (3.80-5.40) m/uL Hgb 14.1 (11.4-16.0) gm/dL Hct 42.5 (34.0-46.0) % MCV 101.1 H (80.0-100.0) fL MCH 33.6 (25.0-35.0) pg MCHC 33.3 (31.0-37.0) g/dL RDW 12.4 (11.5-15.5) % Plt Count 203 (150-450) k/uL MPV 8.3 Neutrophils % 38 % Lymphocytes % 52 % Monocytes % 4 % Eosinophils % 4 % Basophils % 1 % Neutrophils # 2.7 (1.3-7.7) k/uL Lymphocytes # 3.6 (1.0-4.8) k/uL Monocytes # 0.3 (0-1.0) k/uL Eosinophils # 0.3 (0-0.7) k/uL Basophils # 0.1 (0-0.2) k/uL Sodium 132 L (137-145) mmol/L Potassium 3.9 (3.5-5.1) mmol/L Chloride 104 (98-107) mmol/L Carbon Dioxide 24 (22-30) mmol/L Anion Gap 4 mmol/L BUN 10 (7-17) mg/dL Creatinine 0.67 (0.52-1.04) mg/dL Est GFR (CKD-EPI)AfAm >90 (>60 ml/min/1.73 sqM) Est GFR (CKD-EPI)NonAf >90 (>60 ml/min/1.73 sqM) Glucose 111 H (74-99) mg/dL Calcium 9.3 (8.4-10.2) mg/dL Total Bilirubin 0.6 (0.2-1.3) mg/dL AST 24 (14-36) U/L ALT 12 (4-34) U/L Alkaline Phosphatase 81 (38-126) U/L Troponin I <0.012 (0.000-0.034) ng/mL Total Protein 7.3 (6.3-8.2) g/dL Albumin 4.7 (3.5-5.0) g/dL - EKG Data -: EKG Interpreted by Me EKG Comments: EKG reveals normal sinus rhythm with no ST changes. Ventricular rate 62 bpm, [place] interval 147, QRS duration 93, QT/QTc 407/412 Disposition Clinical Impression: Left shoulder strain Disposition: HOME SELF-CARE Condition: Stable Instructions (If sedation given, give patient instructions): Rotator Cuff Injury (ED) Additional Instructions: Follow-up with orthopedics as discussed. Take anti-inflammatories and muscle relaxers for pain as needed. Please return to the Emergency Department if symptoms worsen or any other concerns. Prescriptions: Naproxen [Naprosyn] 500 mg PO BID PRN #30 tablet PRN Reason: Pain methocarbamoL [Robaxin] 500 mg PO TID PRN #15 tab PRN Reason: muscle spasms Is patient prescribed a controlled substance at d/c from ED?: No Referrals: Miller Monroy MD [Primary Care Provider] - 1-2 days Mynor Ruiz DO [Doctor of Osteopathic Medicine] - 1-2 days Time of Disposition: 21:53
[2023-10-29 20:23] LABS: Basophils # (A) 0.1 k/uL (0-0.2); Basophils % (A) 1 %; Eosinophils # (A) 0.3 k/uL (0-0.7); Eosinophils % (A) 4 %; HCT 42.5 % (34.0-46.0); HGB 14.1 gm/dL (11.4-16.0); Lymphocytes # (A) 3.6 k/uL (1.0-4.8); Lymphocytes % (A) 52 %; MCH 33.6 pg (25.0-35.0); MCHC 33.3 g/dL (31.0-37.0); MCV 101.1 fL (80.0-100.0); Mean Platelet Volume 8.3; Monocytes # (A) 0.3 k/uL (0-1.0); Monocytes % (A) 4 %; Neutrophils # (A) 2.7 k/uL (1.3-7.7); Neutrophils % (A) 38 %; Platelet Count 203 k/uL (150-450); RDW 12.4 % (11.5-15.5)
[2023-10-29 20:33] LABS: ALT 12 U/L (4-34); AST 24 U/L (14-36); African American GFR (CKD) >90 (>60 ml/min/1.73 sqM); Albumin 4.7 g/dL (3.5-5.0); Alkaline Phosphatase 81 U/L (38-126); Anion Gap 4 mmol/L; Blood Urea Nitrogen 10 mg/dL (7-17); Calcium 9.3 mg/dL (8.4-10.2); Carbon Dioxide 24 mmol/L (22-30); Chloride 104 mmol/L (98-107); Glucose 111 mg/dL (74-99); Non-African American GFR(CKD) >90 (>60 ml/min/1.73 sqM); Potassium 3.9 mmol/L (3.5-5.1); Sodium 132 mmol/L (137-145); Total Bilirubin 0.6 mg/dL (0.2-1.3); Total Protein 7.3 g/dL (6.3-8.2)
[2023-10-29] MEDS: CYCLOBENZAPRINE 10 MG TAB PO STA (20:35)
[2023-10-29] MEDS: KETOROLAC 15 MG/ML 1 ML VIAL IVP STA (20:36)
--- NOTE | 2023-10-29 21:12 | XR ---
EXAMINATION TYPE: XR chest 2V DATE OF EXAM: 10/29/2023 COMPARISON: 07/23/2022 INDICATION: Left shoulder pain TECHNIQUE: Frontal and lateral views of the chest are obtained. FINDINGS: The heart size is normal. The pulmonary vasculature is normal. The lungs are clear. There is hyperinflation. Consider emphysematous change versus good inspiratory effort. IMPRESSION: 1. No acute pulmonary process.
--- NOTE | 2023-10-29 21:12 | XR ---
EXAMINATION TYPE: XR shoulder complete LT DATE OF EXAM: 10/29/2023 COMPARISON: NONE HISTORY: Pain TECHNIQUE: Shoulder examined in 3 projections. FINDINGS: The humeral head articulates with the glenoid. The acromio-clavicular junction is normal. No acute fractures or dislocations are evident. A follow up study can be performed 7-10 days from acute trauma for continued pain. MRI can be perfor med if soft tissue evaluation would be of benefit. IMPRESSION: 1. No acute osseous shoulder abnormality.
[2023-10-29 22:11] VITALS: BP 122/67; PULSE 68; RESP 18; TEMP 98.1
== END 2023-10-29 22:12 | disposition home or self-care (01) ==
LOC: EC 19:05
CPT/HCPCS: 36415; 71046; 80053; 84484; 85025; 93005; 96374; 99284

== ENCOUNTER 2024-08-20 17:57 | Emergency (ER) | payer OTHER ==
[2024-08-20 18:16] VITALS: TEMP 97.9
--- NOTE | 2024-08-20 19:28 | ED ---
ENT HPI - General Chief complaint: Dental/Oral Stated complaint: Dental/Jaw pain Time Seen by Provider: 08/20/24 18:14 Source: patient, RN notes reviewed Mode of arrival: ambulatory Limitations: no limitations - History of Present Illness Initial comments: This is a 44-year-old female presenting for left upper dental pain (/10) x 2 weeks. Patient endorses history of poor dentition. Endorses use of Motrin with minimal relief. Denies fever, chills, drooling, trismus, dyspnea. MD complaint: tooth pain 1 - Erythematous gingiva - Related Data Previous Rx's Medication Instructions Recorded Ketorolac [Toradol] 10 mg PO Q6HR PRN #15 tab 07/23/22 Naproxen [Naprosyn] 500 mg PO BID PRN #30 tablet 10/29/23 methocarbamoL [Robaxin] 500 mg PO TID PRN #15 tab 10/29/23 Amoxic-Pot Clav 875-125Mg 1 tab PO Q12HR #14 tab 08/20/24 [Augmentin 875-125] HYDROcodone/APAP 5-325MG [[place] 1 tab PO Q6HR PRN 3 Days #12 tab 08/24/24 5-325] Allergies Allergy/AdvReac Type Severity Reaction Status Date / Time No Known Allergies Allergy Verified 08/24/24 10:37 Review of Systems ROS Statement: Those systems with pertinent positive or pertinent negative responses have been documented in the HPI. ROS Other: All systems not noted in ROS Statement are negative. Past Medical History Past Medical History: No Reported History Additional Past Medical History / Comment(s): anemia History of Any Multi-Drug Resistant Organisms: None Reported Past Surgical History: Cholecystectomy Past Psychological History: No Psychological Hx Reported Smoking Status: Current every day smoker Past Alcohol Use History: None Reported Past Drug Use History: Marijuana General Exam Limitations: no limitations General appearance: alert, in no apparent distress Head exam: Present: atraumatic, normocephalic, normal inspection Eye exam: Present: normal appearance, PERRL, EOMI. Absent: scleral icterus, conjunctival injection, periorbital swelling ENT exam: Present: normal exam, mucous membranes moist, other (Positive left upper gingival erythema and edema along 2nd and 3rd molars without obvious damage to dentin) Neck exam: Present: normal inspection. Absent: tenderness, meningismus, lymphadenopathy Respiratory exam: Present: normal lung sounds bilaterally. Absent: respiratory distress, wheezes, rales, rhonchi, stridor Cardiovascular Exam: Present: regular rate, normal rhythm, normal heart sounds. Absent: systolic murmur, diastolic murmur, rubs, gallop, clicks GI/Abdominal exam: Present: soft, normal bowel sounds. Absent: distended, tenderness, guarding, rebound, rigid Extremities exam: Present: normal inspection, full ROM, normal capillary refill. Absent: tenderness, pedal edema, joint swelling, calf tenderness Back exam: Present: normal inspection Neurological exam: Present: alert, oriented X3, CN II-XII intact Psychiatric exam: Present: normal affect, normal mood Skin exam: Present: warm, dry, intact, normal color. Absent: rash Course Vital Signs 08/20/24 08/20/24 18:13 20:05 Temperature 97.9 F 97.9 F Pulse Rate 78 85 Respiratory 18 19 Rate Blood Pressure 110/69 115/80 O2 Sat by Pulse 98 97 Oximetry Medical Decision Making - Medical Decision Making Was pt. sent in by a medical professional or institution (CHAIM Lopez, [employer], urgent care, hospital, or senior care...) When possible be specific @ -No Did you speak to anyone other than the patient for history (EMS, parent, family, police, friend...)? What history was obtained from this source @ -No Did you review nursing and triage notes (agree or disagree)? Why? @ -I reviewed and agree with nursing and triage notes Were old charts reviewed (outside hosp., previous admission, EMS record, old EKG, old radiological studies, urgent care reports/EKG's, senior care records)? Report findings @ -No old charts were reviewed Differential Diagnosis (chest pain, altered mental status, abdominal pain women, abdominal pain men, vaginal bleeding, weakness, fever, dyspnea, syncope, headache, dizziness, GI bleed, back pain, seizure, CVA, palpatations, mental health, musculoskeletal)? @ -Dental abscess, ANUG, gingivitis, cavity, dental trauma, this is not an exhaustive list EKG interpreted by me (3pts min.). @ -Not done X-rays interpreted by me (1pt min.). @ -None done CT interpreted by me (1pt min.). @ -None done U/S interpreted by me (1pt. min.). @ -None done What testing was considered but not performed or refused? (CT, X-rays, U/S, labs)? Why? @ -None What meds were considered but not given or refused? Why? @ -None Did you discuss the management of the patient with other professionals (pr ofessionals i.e. , PA, [employer], lab, RT, psych nurse, social insurance specialist, temperature inspector, teacher, correction officer head, returned case inspector)? Give summary @ -No Was smoking cessation discussed for >3mins.? @ -No Was critical care preformed (if so, how long)? @ -No Were there social determinants of health that impacted care today? How? (Homelessness, low income, unemployed, alcoholism, drug addiction, transportation, low edu. Level, literacy, decrease access to med. care, care home, rehab)? @ -No Was there de-escalation of care discussed even if they declined (Discuss DNR or withdrawal of care, Hospice)? DNR status @ -No What co-morbidities impacted this encounter? (DM, HTN, Smoking, COPD, CAD, Cancer, CVA, ARF, Chemo, Hep., AIDS, mental health diagnosis, sleep apnea, morbid obesity)? @ -None Was patient admitted / discharged? Hospital course, mention meds given and route, prescriptions, significant lab abnormalities, going to OR and other pertinent info. @ -Patient provided prednisone and initial dose of p.o. Augmentin with remaining Augmentin regimen sent to patient's pharmacy. Advised alternate Tylenol/Motrin every 4 hours for pain and swish with warm salt water. Follow-up with dentist for definitive treatment/management of dental issues. Discussed patient with Dr. Del Rosario. Undiagnosed new problem with uncertain prognosis? @ -No Drug Therapy requiring intensive monitoring for toxicity (Heparin, Nitro, Insulin, Cardizem)? @ -No Were any procedures done? @ -No Diagnosis/symptom? @ -Dental abscess Acute, or Chronic, or Acute on Chronic? @ -Acute Uncomplicated (without systemic symptoms) or Complicated (systemic symptoms)? @ -Uncomplicated Side effects of treatment? @ -No Exacerbation, Progression, or Severe Exacerbation? @ -No Poses a threat to life or bodily function? How? (Chest pain, [place], [place], pneumonia, PE, COPD, DKA, ARF, appy, cholecystitis, CVA, Diverticulitis, Homicidal, Suicidal, threat to staff... and all critical care pts) @ -No Disposition Clinical Impression: Dental abscess Disposition: HOME SELF-CARE Condition: Good Instructions (If sedation given, give patient instructions): Dental Abscess (ED) Additional Instructions: Alternate Tylenol/Motrin every 4 hours for pain. Swish with warm salt water. Follow-up with dentist for definitive management of dental pain. Prescriptions: Amoxic-Pot Clav 875-125Mg [Augmentin 875-125] 1 tab PO Q12HR #14 tab Is patient prescribed a controlled substance at d/c from ED?: No Referrals: Miller Monroy MD [Primary Care Provider] - 1-2 days Brannon Murphy DDS [STAFF PHYSICIAN] - 1-2 days Time of Disposition: 19:28
[2024-08-20] MEDS: AMOXIC-POT CLAV 875-125MG 1 EACH TAB PO STA (19:39)
[2024-08-20 20:26] VITALS: BP 115/80; PULSE 85; RESP 19
== END 2024-08-20 20:06 | disposition home or self-care (01) ==
LOC: EC 17:57
DX: K04.7 Periapical abscess without sinus (principal); F17.200 Nicotine dependence, unspecified, uncomplicated
CPT/HCPCS: 99282; J7512

== ENCOUNTER 2024-08-24 10:16 | Emergency (ER) | payer OTHER ==
[2024-08-24 10:37] VITALS: TEMP 98
--- NOTE | 2024-08-24 11:23 | ED ---
General Adult HPI - General Source: patient, RN notes reviewed Mode of arrival: ambulatory Limitations: no limitations <Kendy Penn - Last Filed: 08/24/24 11:22> <Alden Waldrop - Last Filed: 08/24/24 12:32> - General Chief complaint: Recheck/Abnormal Lab/Rx Stated complaint: Headache/Ear aches Time Seen by Provider: 08/24/24 10:30 - History of Present Illness Initial comments: quick note-44Y female presenting to emergency room with multiple complaints. Patient states that she has headache, bilateral ear pain, dental pain and has been experiencing diarrhea over the past day. Recently started antibiotics for dental infection. (Kendy Penn) Dictation was produced using [employer] dictation software. please excuse any grammatical, word or spelling errors. Chief Complaint: 44-year-old female dental pain History of Present Illness: Patient is a 44-year-old female presents with dental pain. Patient was seen here in the emergency department 4 days ago for the same issue. She does not have insurance yet. She is scheduled to have insurance soon. She has not seen a dentist. She started taking her antibiotics yesterday. States that the pain feels slightly worse to her left maxilla area. States that it is causing her to have a mild headache. States that she had 1 day of diarrhea which started after she started taking antibiotics. The ROS documented in this emergency department record has been reviewed and confirmed by me. Those systems with pertinent positive or negative responses have been documented in the HPI. All other systems are other negative and/or n oncontributory. (Alden Waldrop) - Related Data Previous Rx's Medication Instructions Recorded Ketorolac [Toradol] 10 mg PO Q6HR PRN #15 tab 07/23/22 Naproxen [Naprosyn] 500 mg PO BID PRN #30 tablet 10/29/23 methocarbamoL [Robaxin] 500 mg PO TID PRN #15 tab 10/29/23 Amoxic-Pot Clav 875-125Mg 1 tab PO Q12HR #14 tab 08/20/24 [Augmentin 875-125] HYDROcodone/APAP 5-325MG [Clarion 1 tab PO Q6HR PRN 3 Days #12 tab 08/24/24 5-325] Allergies Allergy/AdvReac Type Severity Reaction Status Date / Time No Known Allergies Allergy Verified 08/24/24 10:37 Review of Systems ROS Other: All systems not noted in ROS Statement are negative. <Kendy Penn - Last Filed: 08/24/24 11:22> ROS Other: All systems not noted in ROS Statement are negative. <Alden Waldrop - Last Filed: 08/24/24 12:32> ROS Statement: Those systems with pertinent positive or pertinent negative responses have been documented in the HPI. Past Medical History Past Medical History: No Reported History Additional Past Medical History / Comment(s): anemia History of Any Multi-Drug Resistant Organisms: None Reported Past Surgical History: Cholecystectomy Past Psychological History: No Psychological Hx Reported Smoking Status: Current every day smoker Past Alcohol Use History: None Reported Past Drug Use History: Marijuana <Kendy Penn - Last Filed: 08/24/24 11:22> General Exam Limitations: no limitations <Kendy Penn - Last Filed: 08/24/24 11:22> <Alden Waldrop - Last Filed: 08/24/24 12:32> - General Exam Comments Initial Comments: Visual Physical Exam Vital signs reviewed General: Well-appearing, nontoxic, no acute distress. Head: Normocephalic, atraumatic Eyes: PERRLA, EOMI ENT: Airway patent Chest: Nonlabored breathing Skin: No visual rash, normal skin tone Neuro: Alert and oriented 3 Musculoskeletal: No gross abnormalities (Kendy Penn) General: Well-appearing, nontoxic, no acute distress Oral: No facial swelling, no gingival abscess, extremely poor dentition Head: Normocephalic, atraumatic Eyes: PERRLA, EOMI ENT: Airway patent Chest: Nonlabored breathing Skin: No visual rash, normal skin tone Neuro: Alert and oriented 3 Musculoskeletal: No gross abnormalities (Alden Waldrop) Course Vital Signs 08/24/24 10:35 Temperature 98 F Pulse Rate 74 Respiratory 20 Rate Blood Pressure 135/81 O2 Sat by Pulse 99 Oximetry Medical Decision Making <Kendy Penn - Last Filed: 08/24/24 11:22> - Lab Data Result diagrams: 08/24/24 11:40 <Alden Waldrop - Last Filed: 08/24/24 12:32> - Medical Decision Making I completed the quick note portion of this chart signed Kendy Penn PA-C (Kendy Penn) Was pt. sent in by a medical professional or institution (CHAIM Lopez, WORKS MANAGER, urgent care, hospital, or care home...) When possible be specific @ -No Did you speak to anyone other than the patient for history (EMS, parent, family, police, friend...)? What history was obtained from this source @ -No Did you review nursing and triage notes (agree or disagree)? Why? @ -I reviewed and agree with nursing and triage notes Were old charts reviewed (outside hosp., previous admission, EMS record, old EKG, old radiological studies, urgent care reports/EKG's, care home records)? Report findings @ -No old charts were reviewed Differential Diagnosis (chest pain, altered mental status, abdominal pain women, abdominal pain men, vaginal bleeding, musculoskeletal, weakness, fever, dyspnea, syncope, headache, dizziness, GI bleed, back pain, seizure, CVA, palpatations, mental health)? @ -Dental abscess, gingivitis, gingival abscess EKG interpreted by me (3pts min.). @ -None done X-rays interpreted by me (1pt min.). @ -None done CT interpreted by me (1pt min.). @ -None done U/S interpreted by me (1pt. min.). @ -None done What testing was considered but not performed or refused? (CT, X-rays, U/S, labs)? Why? @ -None What meds were considered but not given or refused? Why? @ -None Was smoking cessation discussed for >3mins.? @ -No Were there social determinants of health that impacted care today? How? ( Homelessness, low income, unemployed, alcoholism, drug addiction, transportation, low edu. Level, literacy, decrease access to med. care, snf, rehab)? @ -No Was there de-escalation of care discussed even if they declined (Discuss DNR or withdrawal of care, Hospice)? DNR status @ -No What co-morbidities impacted this encounter? (DM, HTN, Smoking, COPD, CAD, Cancer, CVA, ARF, Chemo, Hep., AIDS, mental health diagnosis, sleep apnea, morbid obesity)? @ -None Was patient admitted / discharged? Hospital course, mention meds given and route, prescriptions, significant lab abnormalities, going to OR and other pertinent info. @ -44-year-old female with dental pain. Patient was seen here in the emergency department 4 days ago. She was prescribed antibiotics but not any analgesics. She is working on getting her insurance and will schedule a dentist appointment soon. Patient has diarrhea after starting antibiotics likely antibiotic induced enteritis. Patient given shot of morphine IV fluids will be discharged with prescription for analgesics. Patient told to follow-up with dentist for definitive treatment of her symptoms. Did you discuss the management of the patient with other professionals (professionals i.e. , PA, WORKS MANAGER, lab, RT, psych nurse, sr. social media & mobile manager, tax lawyer, teacher, parking regulation enforcement officer, nurse case management)? Give summary @ -No Was critical care preformed (if so, how long)? @ -No Undiagnosed new problem with uncertain prognosis? @ -No Drug Therapy requiring intensive monitoring for toxicity (Heparin, Nitro, Insulin, Cardizem)? @ -No Were any procedures done? @ -No Diagnosis/symptom? Acute, or Chronic, or Acute on Chronic? Uncomplicated (without systemic symptoms) or Complicated (systemic symptoms)? @ -Dental pain Side effects of treatment? @ -No Exacerbation, Progression, or Severe Exacerbation? @ -No Poses a threat to life or bodily function? How? (Chest pain, USA, AR, pneumonia, PE, COPD, DKA, ARF, appy, cholecystitis, CVA, Diverticulitis, Homicidal, Suicid al, threat to staff... and all critical care pts) @ -yes (Alden Waldrop) - Lab Data Lab Results 08/24/24 Range/Units 11:40 WBC 7.33 (4.50-10.00) 10*3/uL RBC 4.56 (4.10-5.20) 10*6/uL Hgb 14.7 (12.0-15.0) g/dL Hct 42.7 (37.2-46.3) % MCV 93.6 (80.0-97.0) fL MCH 32.2 H (27.0-32.0) pg MCHC 34.4 (32.0-37.0) g/dL Plt Count 192 (140-440) 10*3/uL MPV 10.5 (9.5-12.2) fL Immature Gran % (Auto) 0.1 % Neutrophils % 37.2 % Lymphocytes % 50.5 % Monocytes % 4.5 % Eosinophils % 6.5 % Basophils % 1.2 % Immature Gran # 0.01 (0.00-0.04) 10*3/uL Neutrophils # 2.72 (1.80-7.70) 10*3/uL Lymphocytes # 3.70 (0.90-5.00) 10*3/uL Monocytes # 0.33 (0.20-1.00) 10*3/uL Eosinophils # 0.48 H (0.04-0.35) 10*3/uL Basophils # 0.09 (0.00-0.10) 10*3/uL Disposition <Kendy Penn - Last Filed: 08/24/24 11:22> Is patient prescribed a controlled substance at d/c from ED?: Yes If prescribed controlled substance>3 days was MAPS reviewed?: Prescribed <3 Days Time of Disposition: 12:32 <Alden Waldrop - Last Filed: 08/24/24 12:32> Clinical Impression: Pain, dental Disposition: HOME SELF-CARE Condition: Fair Instructions (If sedation given, give patient instructions): Toothache (ED) Additional Instructions: follow up with dentist Prescriptions: HYDROcodone/APAP 5-325MG [Clarion 5-325] 1 tab PO Q6HR PRN 3 Days #12 tab PRN Reason: Severe Pain Referrals: Miller Monroy MD [Primary Care Provider] - 1-2 days
[2024-08-24 12:13] LABS: Basophils # (A) 0.09 10*3/uL (0.00-0.10); Basophils % (A) 1.2 %; Eosinophils # (A) 0.48 10*3/uL (0.04-0.35); Eosinophils % (A) 6.5 %; HCT 42.7 % (37.2-46.3); HGB 14.7 g/dL (12.0-15.0); Lymphocytes # (A) 3.70 10*3/uL (0.90-5.00); Lymphocytes % (A) 50.5 %; MCH 32.2 pg (27.0-32.0); MCHC 34.4 g/dL (32.0-37.0); MCV 93.6 fL (80.0-97.0); Monocytes # (A) 0.33 10*3/uL (0.20-1.00); Monocytes % (A) 4.5 %; Neutrophils # (A) 2.72 10*3/uL (1.80-7.70); Neutrophils % (A) 37.2 %; Platelet Count 192 10*3/uL (140-440); RBC 4.56 10*6/uL (4.10-5.20); RDW 12.9 % (11.5-14.5); WBC 7.33 10*3/uL (4.50-10.00)
[2024-08-24 12:41] LABS: ALT 10 U/L (4-34); AST 18 U/L (14-36); African American GFR (CKD) >90 (>60 ml/min/1.73 sqM); Albumin 4.2 g/dL (3.5-5.0); Alkaline Phosphatase 97 U/L (38-126); Anion Gap 9 mmol/L; Blood Urea Nitrogen 9 mg/dL (7-17); Calcium 9.6 mg/dL (8.4-10.2); Carbon Dioxide 26 mmol/L (22-30); Chloride 104 mmol/L (98-107); Glucose 88 mg/dL (74-99); Lipase 49 U/L (23-300); Non-African American GFR(CKD) >90 (>60 ml/min/1.73 sqM); Potassium 4.4 mmol/L (3.5-5.1); Sodium 139 mmol/L (137-145); Total Protein 6.6 g/dL (6.3-8.2)
[2024-08-24 12:47] VITALS: RESP 16
[2024-08-24] MEDS: MORPHINE SULFATE 4 MG/ML SYRINGE IVP PRN (12:49)
[2024-08-24] MEDS: SODIUM CHLORIDE 0.9% 500 ML 500 ML IV STA (12:49)
[2024-08-24 13:45] VITALS: BP 109/78; PULSE 98
== END 2024-08-24 13:45 | disposition home or self-care (01) ==
LOC: EC 10:16
DX: K08.89 Other specified disorders of teeth and supporting structures (principal); F17.200 Nicotine dependence, unspecified, uncomplicated
CPT/HCPCS: 36415; 80053; 83690; 85025; 99283; J2270